=== PATIENT | female | born 1955 | race Caucasian/White ===

== ENCOUNTER 2016-07-23 09:16 | Outpatient (CLI) | payer BC | END 2016-07-23 09:17 | disposition home or self-care (01) | DX: Z12.31 Encounter for screening mammogram for malignant neoplasm of breast (principal) ==

== ENCOUNTER 2016-07-23 09:19 | Outpatient (CLI) | payer BC | END 2016-07-23 09:20 | disposition home or self-care (01) | DX: M85.89 Other specified disorders of bone density and structure, multiple sites (principal) ==

== ENCOUNTER 2016-07-23 10:01 | Outpatient (CLI) | payer BC | END 2016-07-23 10:02 | disposition home or self-care (01) | DX: K44.9 Diaphragmatic hernia without obstruction or gangrene (principal); J98.11 Atelectasis ==

== ENCOUNTER 2017-08-23 09:40 | Outpatient (CLI) | payer OTHER ==
--- NOTE | 2017-08-25 10:23 | Mammography Report ---
DIGITAL BILATERAL SCREENING MAMMOGRAM: 08/23/2017 COMPARISON: Mammogram 07/23/2016. INDICATION: Screening. TECHNIQUE: Routine CC and MLO projections were obtained of the breasts. FINDINGS: The breast parenchyma is heterogeneously dense which may limit the sensitivity of mammography. No dominant mass, architectural distortion or more concerning cluster of microcalcifications are seen. IMPRESSION: 1. BIRADS CATEGORY 1-NEGATIVE. 2. RECOMMEND ANNUAL SCREENING MAMMOGRAM. STANDARD QUALIFYING STATEMENTS: 1. This examination was reviewed with the aid of Computer-Aided Detection (CAD) . 2. A negative or benign imaging report should not delay biopsy if clinically suspicious findings are present. Consider surgical consultation if warranted. More than 5 % of cancers are not identified by imaging. 3. Dense breasts may obscure an underlying neoplasm. TD: 08/25/2017 10:22 TREASURE
== END 2017-08-23 09:41 | disposition home or self-care (01) ==
LOC: DI.S 09:40
PROVIDERS: ATTEND Physician Assistant
DX: Z12.31 Encounter for screening mammogram for malignant neoplasm of breast (principal)
CPT/HCPCS: 77067

== ENCOUNTER 2019-08-02 10:08 | Outpatient (CLI) | payer MEDICARE, BC ==
--- NOTE | 2019-08-02 11:37 | Mammography Report ---
Reason: ROUTINE MAMMO Procedure Date: 08/02/2019 Accession Number: [id number] / [id number] Procedure: MGS - Screening Mammo Dig Bilat CPT Code: Final Report FULL RESULT: EXAM: Screening Mammo Dig Bilat DATE: 08/02/2019 10:33 AM CLINICAL HISTORY: Screening encounter. TECHNIQUE: (B) - Bilateral CC, laterally exaggerated CC, MLO views were obtained. COMPARISON: 08/23/2017 through 12/31/2011. PARENCHYMAL PATTERN: (D) - The breast(s) demonstrate(s) heterogeneously dense fibroglandular parenchyma. FINDINGS: The right upper outer breast 3.5 cm from the nipple at the 11:00 position demonstrates a new focal asymmetry which requires additional spot views and potentially ultrasound, ideally with tomography. A second right breast asymmetry in the upper posterior right breast seen on MLO view only 6 cm from the nipple potentially corresponds to a lymph node in the lateral axillary tail as seen on CC projection of the current study as well as multiple previous studies, clarification by focused right breast ultrasound. There are no suspicious masses, calcifications, or areas of distortion of the left breast. IMPRESSION: Incomplete examination. BI-RADS category 0. RECOMMENDATION: (ADDMU) - Additional views using both Mammography and Ultrasound recommended. Right breast. BI-RADS CATEGORY: (0) - Incomplete Examination - need additional evaluation. STANDARD QUALIFYING STATEMENTS: 1. This examination was reviewed with the aid of Computer-Aided Detection (CAD). 2. A negative or benign imaging report should not preclude biopsy if clinically suspicious findings are present. 3. Dense breasts may obscure an underlying neoplasm. 4. This examination was reviewed without the aid of 3D breast imaging (tomosynthesis).
== END 2019-08-02 10:09 | disposition home or self-care (01) ==
LOC: DI.S 10:08
PROVIDERS: ATTEND Physician Assistant
DX: Z12.31 Encounter for screening mammogram for malignant neoplasm of breast (principal)
CPT/HCPCS: 77067

== ENCOUNTER 2019-08-18 10:43 | Outpatient (CLI) | payer MEDICARE, BC ==
--- NOTE | 2019-08-21 08:26 | DEXA Report ---
Reason: ASYMPTOMATIC MENOPAUSAL Procedure Date: 08/18/2019 Accession Number: [id number] / [id number] Procedure: DEX - Dexa Spine and/or Hip CPT Code: Final Report FULL RESULT: EXAM: Dexa Spine and/or Hip DATE: 08/18/2019 11:36 AM CLINICAL HISTORY: ASYMPTOMATIC MENOPAUSAL TECHNIQUE: Dual energy x-ray absorptiometry (DXA) was performed on a [employer] System. Regions measured are the AP Spine, femoral neck, and if needed forearm. COMPARISON: 07/23/2016. In accordance with the International Society for Clinical Densitometry (ISCD) guidelines, data from previous exams may be reanalyzed using current recommendations and techniques. This is done to allow a more accurate basis for comparison with the current study. FINDINGS: The data for the lumbar spine is as follows: BMD (g/cm/cm) T-SCORE Z-SCORE REGION L1 0.930 -1.7 -0.1 L2 0.925 -2.3 -0.8 L3 1.035 -1.4 0.2 L4 1.011 -1.6 0.0 TOTAL 0.979 -1.7 -0.1 NOTE: All evaluable vertebrae are used for classification The data for the hip is as follows: BMD (g/cm/cm) T-SCORE Z-SCORE REGION Neck 0.720 -2.3 -0.8 TOTAL 0.754 -2.0 -0.8 NOTE: The femoral neck or total proximal femur, whichever is lowest, is used for classification. DXA RESULTS SUMMARY: Spine SCAN DATE AGE BMD CHANGE VS CHANGE VS PREVIOUS PREVIOUS % [birth year]18/2019 [age] 0[age]979 0.044* 4.7 07/23/2016 60.6 0[age]935 * Denotes significant change at the 95% confidence level. Denotes dissimilar scan types or analysis methods. DXA RESULTS SUMMARY: Hip SCAN DATE AGE BMD CHANGE VS CHANGE VS PREVIOUS PREVIOUS % [birth year]18[birth year]2019 65.7 0[age]754 0.032 4.4 07/23/2016 60.6 0.722 * Denotes significant change at the 95% confidence level. Denotes dissimilar scan types or analysis methods. IMPRESSION: THE WHO CLASSIFICATION BASED ON THE INTERNATIONAL REFERENCE STANDARD IS OSTEOPENIA. THE FRACTURE RISK IS INCREASED. Interval decrease in bone density is statistically significant. RECOMMENDATION: Patients with diagnosis of osteoporosis or osteopenia should have regular bone mineral density assessment. For those eligible for Medicare, routine testing is allowed once every 2 years. Testing frequency can be increased for patients who have rapidly progressing disease or for those who are receiving medical therapy to restore bone mass. COMMENT: World Health Organization (WHO) definitions for osteoporosis and osteopenia: NORMAL BMD: T-score at -1.0 or higher, fracture risk is low OSTEOPENIA BMD: T-score between -1.0 and -2.5, fracture risk is increased. OSTEOPOROSIS BMD: T-score at -2.5 or lower, fracture risk is high. National Osteoporosis Foundation recommends: 1. Obtain adequate dietary calcium (at least 1200 mg per day) and vitamin D (400-800 international units per day). 2. Participate, as appropriate, in regular weightbearing and muscle-strengthening exercise. 3. Avoid tobacco use and reduce alcohol and caffeine intake. 4. For more detailed information see the website at www.NOF.org.
== END 2019-08-18 10:44 | disposition home or self-care (01) ==
LOC: DI 10:43
PROVIDERS: ATTEND Physician Assistant
DX: M85.89 Other specified disorders of bone density and structure, multiple sites (principal)
CPT/HCPCS: 77080

== ENCOUNTER 2019-11-08 13:28 | Outpatient (CLI) | payer MEDICARE, BC ==
--- NOTE | 2019-11-09 13:57 | XRAY Report ---
Reason: PAIN IN HIP Procedure Date: 11/08/2019 Accession Number: [id number] / [id number] Procedure: XR - Hips 2V BILAT CPT Code: Final Report FULL RESULT: EXAM: BILATERAL HIP RADIOGRAPHY EXAM DATE: 11/08/2019 01:54 PM. CLINICAL HISTORY: Bilateral hip pain. COMPARISON: None. TECHNIQUE: 2 views each. FINDINGS: Bones: There is deformity of the left obturator ring suggesting old trauma. The remainder osseous structures appear intact. Right Hip: Normal. No dislocation. The hip joint space is preserved. Left Hip: Minor degenerative changes are seen in the left hip joint with minor marginal spurring present. No significant joint space narrowing. Soft Tissues: Normal. No soft tissue swelling. IMPRESSION: 1. No acute osseous abnormality demonstrated. 2. Old healed left obturator ring fracture deformity. 3. 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 RADIA
== END 2019-11-08 13:29 | disposition home or self-care (01) ==
LOC: DI 13:28
PROVIDERS: ATTEND Nurse Practitioner Family
DX: M95.5 Acquired deformity of pelvis (principal); M16.12 Unilateral primary osteoarthritis, left hip; S32.89XS Fracture of other parts of pelvis, sequela
CPT/HCPCS: 73521

== ENCOUNTER 2019-12-07 13:10 | Outpatient (CLI) | payer MEDICARE, BC ==
--- NOTE | 2019-12-08 11:33 | Ultrasound Report ---
LIMITED ULTRASOUND OF RIGHT BREAST AND AXILLA: 12/07/2019 CLINICAL: Patient returns today to evaluate a density in the right breast. Comparison is made to exams dated: 12/07/2019 mammogram, 08/02/2019 mammogram, 08/23/2017 mammogram, an d 07/23/2016 mammogram - [facility]. Color flow and real-time ultrasound of the right breast 12 o'clock, and axilla regions were performed . Rizo scale images of the real-time examination were reviewed. There is a 0.9 cm x 1 cm x 0.6 cm irregular mass with mildly angular margins in the right breast at 1 2 o'clock anterior depth 4 cm from the nipple. This irregular mass is hypoechoic. This correlates w ith mammography findings. Color flow imaging demonstrates that there is vascularity present. No significant abnormalities were seen sonographically in the right axilla. IMPRESSION: SUSPICIOUS OF MALIGNANCY The 0.9 cm x 1 cm x 0.6 cm irregular mass in the right breast is suspicious of malignancy. An ultras ound guided biopsy is recommended. Findings and recommendations were discussed with the patient during today's visit by Dr. Celaya. This exam was interpreted at Station ID: [id number]. Electronically Signed By: Az Duarte M.D. aty/:12/07/2019 15:20:37 Ultrasound BI-RADS: 4 Suspicious for malignancy BI-RADS CATEGORY: (4) - 4 None [id number] Immediate follow-up LATERALITY: ()
--- NOTE | 2019-12-08 11:33 | Mammography Report ---
UNILATERAL RIGHT DIGITAL DIAGNOSTIC MAMMOGRAM 3D/2D: 12/07/2019 CLINICAL: Patient returns today to evaluate a focal asymmetry in the right breast. Comparison is made to exams dated: 08/02/2019 mammogram, 08/23/2017 mammogram, and 07/23/2016 mammogram - [facility]. There are scattered fibroglandular elements in right breast. There is a 1 cm irregular equal density focal asymmetry in the right breast at 12 o'clock anterior de pth. This is seen in additional views. This is more prominent than on prior imaging. There also is an oval focal asymmetry in the right breast at 11 o'clock middle depth which appears to represent a lymph node. This likely correlates with the second asymmetry seen in the MLO view only described on most recent comparison study. It is much less conspicuous on today's additional images. No other significant masses or calcifications are seen in the breast. IMPRESSION: INCOMPLETE: NEEDS ADDITIONAL IMAGING EVALUATION The 1 cm irregular equal density asymmetry in the right breast at 12 o'clock anterior depth is indete rminate. An ultrasound is recommended for further evaluation and is scheduled to immediately follow this study . The oval focal asymmetry in the right breast at 11 o'clock middle depth most likely is a lymph node a nd is indeterminate. An ultrasound is recommended for further evaluation and is scheduled to immediately follow this study . This exam was interpreted at Station ID: [id number]. NOTE: For mammograms, a report in lay terms will be sent to the patient. Approximately 15% of breast malignancies will not be visualized mammographically. In the management of a palpable breast mass, a negative mammogram must not discourage biopsy of a clinically suspicious lesion. Electronically Signed By: Az Duarte M.D. aty/:12/07/2019 14:19:06 ACR BI-RADS Category 0: Incomplete 3340F PARENCHYMAL PATTERN: (A) - The breast(s) demonstrate(s) scattered fibroglandular densities. BI-RADS CATEGORY: (0) - 0 Ultrasound [id number] Immediate follow-up LATERALITY: (R)
== END 2019-12-07 13:11 | disposition home or self-care (01) ==
LOC: DI 13:10
PROVIDERS: ATTEND Physician Assistant
DX: N63.15 Unspecified lump in the right breast, overlapping quadrants (principal)
CPT/HCPCS: 76642

== ENCOUNTER 2019-12-18 12:46 | Outpatient (CLI) | payer MEDICARE, BC ==
[2019-12-18] MEDS ORDERED: BUFFERED LIDOCAINE 10 ML SYRINGE ONE (13:08)
[2019-12-18] MEDS ORDERED: BUFFERED LIDOCAINE 10 ML SYRINGE IU ONE (14:58)
--- NOTE | 2019-12-22 12:45 | Ultrasound Report ---
ULTRASOUND GUIDED BIOPSY RIGHT BREAST WITH MARKING DEVICE INSERTED AND POST MAMMOGRAPHIC IMAGIN12/17 CLINICAL: Right breast mass. PATIENT CONSENT: Risks (minor bleeding, infection, vasovagal reaction and repeat procedure), benefits and alternatives were explained to the patient and written informed consent was obtained. Correlation is made to exams dated: 12/18/2019 mammogram, 12/07/2019 ultrasound, 12/07/2019 mammogram, mammogram, 08/23/2017 mammogram, and 07/23/2016 mammogram - [facility]. An ultrasound guided biopsy using real-time ultrasound was performed for the 0.9 cm x 1 cm x 0.6 cm m ass located in the right breast at 12 o'clock anterior depth 4 cm from the nipple. This was describe d on the previous mammography and ultrasound reports. The skin was prepped in the usual manner. Loc al anesthetic was administered to the access site. A 14 gauge biopsy needle was placed adjacent to t he abnormality under ultrasound guidance. Once the needle was documented to be in the correct locati on, three specimens were obtained using a BARD biopsy device. A clip was inserted into the biopsy ca vity. A sterile dressing was applied to the access site. Post procedure mammographic imaging demons trates the location device at the targeted area. The specimens were sent to the laboratory for patho logical analysis. IMPRESSION: ULTRASOUND GUIDED BIOPSY MALIGNANT Ultrasound guided biopsy of the 0.9 cm x 1 cm x 0.6 cm mass in the right breast at 12 o'clock anterio r depth 4 cm from the nipple was successful. Pathology findings indicate invasive ductal carcinoma a nd results are concordant with imaging findings. A surgical/oncologic consultation is recommended. This exam was interpreted at Station ID: [id number]. Louis louise,aty/:12/22/2019 12:07:36 Implanted Device GUDID information: GUDID: ?, Type: BxMarker, Breast: Right, Location: 12 o'clock BI-RADS CATEGORY: () - Unspecified - other recall n/a LATERALITY: (B)
== END 2019-12-18 12:47 | disposition home or self-care (01) ==
LOC: DI 12:46
PROVIDERS: ATTEND Internal Medicine
DX: C50.511 Malignant neoplasm of lower-outer quadrant of right female breast (principal); Z17.0 Estrogen receptor positive status [ER+]
CPT/HCPCS: 19083

== ENCOUNTER 2019-12-25 11:05 | Outpatient (CLI) | payer MEDICARE, BC ==
[2019-12-25 15:11] LABS: BASOPHILS # (AUTO) 0.1 10^3/uL (0.0-0.1); BASOPHILS % (AUTO) 0.9 %; EOSINOPHILS # (AUTO) 0.2 10^3/uL (0.0-0.7); EOSINOPHILS % (AUTO) 1.7 %; HGB - HEMOGLOBIN 11.1 g/dL (12.0-16.0); LYMPHOCYTES # (AUTO) 2.7 10^3/uL (1.5-3.5); LYMPHOCYTES % (AUTO) 25.1 %; MEAN CORPUSCULAR HEMOGLOBIN 28.3 pg (27.0-31.0); MEAN CORPUSCULAR HGB CONC 31.7 g/dL (32.0-36.0); MEAN CORPUSCULAR VOLUME 89.3 fL (81.0-99.0); MEAN PLATELET VOLUME 10.1 fL (7.9-10.8); MONOCYTES # (AUTO) 1.2 10^3/uL (0.0-1.0); MONOCYTES % (AUTO) 11.2 %; NEUTROPHILS # (AUTO) 6.6 10^3/uL (1.5-6.6); NEUTROPHILS % (AUTO) 60.7 %; PLT - PLATELET COUNT 654 10^3/uL (130-450); RED BLOOD COUNT 3.92 10^6/uL (4.20-5.40); RED CELL DISTRIBUTION WIDTH 15.1 % (12.0-15.0); WHITE BLOOD COUNT 10.9 x10^3/uL (4.8-10.8)
[2019-12-25 16:06] LABS: CRP - C-REACTIVE PROTEIN 2.6 mg/dL (0-1.0)
== END 2019-12-25 11:06 | disposition home or self-care (01) ==
LOC: LAB.S 11:05
PROVIDERS: ATTEND Registered Nurse
DX: M79.10 Myalgia, unspecified site (principal); D47.3 Essential (hemorrhagic) thrombocythemia
CPT/HCPCS: 36415; 82728; 83540; 84466; 85025; 85651; 86140

== ENCOUNTER 2020-11-22 10:20 | Outpatient (CLI) | payer MEDICARE, BC ==
--- NOTE | 2020-11-25 11:44 | Mammography Report ---
BILATERAL DIGITAL DIAGNOSTIC MAMMOGRAM 3D/2D: 11/22/2020 CLINICAL: Routine screening for left. Personal history of right breast cancer. Comparison is made to exams dated: 12/18/2019 ultrasound biopsy, 12/18/2019 mammogram, 12/07/2019 ultraso und, 12/07/2019 mammogram, 08/02/2019 mammogram, and 08/23/2017 mammogram - [facility] . There are scattered fibroglandular elements in both breasts. There is a stable benign focal asymmetry in both breasts. There also are benign post operative findi ngs in the right breast. No significant masses, calcifications, or other findings are seen in either breast. There has been no significant interval change. IMPRESSION: BENIGN There is no mammographic evidence of malignancy. A 1 year screening mammogram is recommended. This exam was interpreted at Station ID: [id number]. NOTE: For mammograms, a report in lay terms will be sent to the patient. Approximately 15% of breast malignancies will not be visualized mammographically. In the management of a palpable breast mass, a negative mammogram must not discourage biopsy of a clinically suspicious lesion. Electronically Signed By: Florentino Christianson acr/penrad:11/22/2020 11:46:53 ACR BI-RADS Category 2: Benign Finding(s) 3342F PARENCHYMAL PATTERN: (A) - The breast(s) demonstrate(s) scattered fibroglandular densities. BI-RADS CATEGORY: (2) - 2 RECOMMENDATION: (ANNUAL) - Recommend routine annual screening mammography. [id number] 1 year screening LATERALITY: (B)
== END 2020-11-22 10:21 | disposition home or self-care (01) ==
LOC: DI 10:20
PROVIDERS: ATTEND Physician Assistant
DX: C50.511 Malignant neoplasm of lower-outer quadrant of right female breast (principal)

== ENCOUNTER 2020-12-20 11:51 | Outpatient (CLI) | payer MEDICARE, BC | END 2020-12-20 11:52 | disposition home or self-care (01) | LOC: LAB.S 11:51 | PROVIDERS: ATTEND Registered Nurse | DX: M85.80 Other specified disorders of bone density and structure, unspecified site (principal); C50.919 Malignant neoplasm of unspecified site of unspecified female breast | CPT/HCPCS: 82306 ==

== ENCOUNTER 2020-12-25 15:00 | Outpatient (CLI) | payer MEDICARE, BC | END 2020-12-25 15:01 | disposition home or self-care (01) | LOC: LAB.S 15:00 | PROVIDERS: ATTEND Registered Nurse | DX: M35.3 Polymyalgia rheumatica (principal) | CPT/HCPCS: 36415; 85651; 86140 ==

== ENCOUNTER 2022-11-27 12:34 | Outpatient (CLI) | payer MEDICARE, BC ==
--- NOTE | 2022-11-30 09:58 | Mammography Report ---
BILATERAL DIGITAL DIAGNOSTIC MAMMOGRAM 3D/2D: 11/27/2022 CLINICAL: 12 month follow up of the right breast, due for bilateral imaging. Comparison is made to exams dated: 12/18/2021 mammogram, 11/22/2020 mammogram, 12/18/2019 mammogram, 12/06 mammogram, 08/02/2019 mammogram, and 08/23/2017 mammogram - [facility]. There are scattered areas of fibroglandular density in both breasts (category b / 25%-50% glandular t issue). There is a stable benign focal asymmetry in both breasts. There also are benign post operative findi ngs in the right breast. Additionally, there is a biopsy clip in the left breast. No significant masses, calcifications, or other findings are seen in either breast. There has been no significant interval change. IMPRESSION: BENIGN There is no mammographic evidence of malignancy. A 1 year screening mammogram is recommended. Findings and recommendations were conveyed to the patient during today's evaluation. This exam was interpreted at Station ID: [id number]. NOTE: For mammograms, a report in lay terms will be sent to the patient. Approximately 15% of breast malignancies will not be visualized mammographically. In the management of a palpable breast mass, a negative mammogram must not discourage biopsy of a clinically suspicious lesion. Electronically Signed By: Az Duarte M.D. aty/:11/27/2022 13:35:51 letter sent: No_Letter ACR BI-RADS Category 2: Benign Finding(s) 3342F PARENCHYMAL PATTERN: (A) - The breast(s) demonstrate(s) scattered fibroglandular densities. BI-RADS CATEGORY: (2) - 2 Mammogram [id number] 1 year screening LATERALITY: (B)
== END 2022-11-27 12:35 | disposition home or self-care (01) ==
LOC: DI 12:34
PROVIDERS: ATTEND Internal Medicine Hematology & Oncology
DX: C50.111 Malignant neoplasm of central portion of right female breast (principal)

== ENCOUNTER 2023-02-25 13:05 | Outpatient (CLI) | payer MEDICARE, BC ==
[2023-02-25 13:19] LABS: BASOPHILS # (AUTO) 0.1 10^3/uL (0.0-0.1); EOSINOPHILS # (AUTO) 0.2 10^3/uL (0.0-0.7); EOSINOPHILS % (AUTO) 2.2 %; HCT - HEMATOCRIT 38.3 % (37.0-47.0); HGB - HEMOGLOBIN 12.8 g/dL (12.0-16.0); MEAN CORPUSCULAR HEMOGLOBIN 30.3 pg (27.0-31.0); MEAN CORPUSCULAR HGB CONC 33.4 g/dL (32.0-36.0); MEAN CORPUSCULAR VOLUME 90.8 fL (81.0-99.0); MEAN PLATELET VOLUME 9.5 fL (7.9-10.8); MONOCYTES # (AUTO) 1.3 10^3/uL (0.0-1.0); MONOCYTES % (AUTO) 12.5 %; NEUTROPHILS # (AUTO) 5.8 10^3/uL (1.5-6.6); NEUTROPHILS % (AUTO) 55.1 %; PLT - PLATELET COUNT 452 10^3/uL (130-450); RED BLOOD COUNT 4.22 10^6/uL (4.20-5.40); WHITE BLOOD COUNT 10.5 x10^3/uL (4.8-10.8)
[2023-02-25 13:46] LABS: ALBUMIN 4.3 g/dL (3.2-5.5); ALBUMIN/GLOBULIN RATIO 1.6 (1.0-2.2); ALKALINE PHOSPHATASE 47 IU/L (42-121); ALT ALANINE AMINOTRANSFERASE 19 IU/L (10-60); AST ASPARTATE AMINOTRANSFERASE 19 IU/L (10-42); BILIRUBIN,TOTAL 0.4 mg/dL (0.2-1.0); BUN - BLOOD UREA NITROGEN 18 mg/dL (6-20); CALCIUM 9.9 mg/dL (8.5-10.3); CARBON DIOXIDE - CO2 28 mmol/L (21-32); CHLORIDE 104 mmol/L (101-111); CHOL/HDL RATIO 4.1 (<4.4); CHOLESTEROL 223 mg/dL; CREATININE 0.8 mg/dL (0.6-1.3); GFR - MDRD 71 (>89); GLUCOSE 98 mg/dL (74-104); HDL CHOLESTEROL 55 mg/dL; LDL CHOLESTEROL,CALCULATED 142 mg/dL; LDL/HDL RATIO 2.6 (<4.4); POTASSIUM 4.5 mmol/L (3.5-4.5); SODIUM 136 mmol/L (135-145); THYROID STIMULATING HORMONE 4.47 uIU/mL (0.34-5.60); TRIGLYCERIDES 129 mg/dL (48-352); VLDL CHOLESTEROL 26 mg/dL
== END 2023-02-25 13:06 | disposition home or self-care (01) ==
LOC: LAB 13:05
PROVIDERS: ATTEND Registered Nurse
DX: M85.80 Other specified disorders of bone density and structure, unspecified site (principal); R53.83 Other fatigue; E78.5 Hyperlipidemia, unspecified
CPT/HCPCS: 36415; 80053; 80061; 82306; 83721; 84443; 85025